=== PATIENT | female | born 1990 | race Caucasian/White ===

== ENCOUNTER 2016-09-12 08:32 | Emergency (ER) | payer SELFPAY ==
[2016-09-12] MEDS ORDERED: PRENTAB55 PO (09:23)
== END 2016-09-12 09:01 | disposition admitted as inpatient to this hospital (09) ==
LOC: M ED 08:32
DX: O99.89 Other specified diseases and conditions complicating pregnancy, childbirth and the puerperium (principal); Z3A.38 38 weeks gestation of pregnancy

== ENCOUNTER 2016-09-12 09:01 | Outpatient (CLI) | payer SELFPAY ==
[~2016-09-12] VITALS: Ht 160 cm; Wt 59.0 kg
[2016-09-12] MEDS ORDERED: PRENTAB55 PO (09:23)
[2016-09-12 10:17] LABS: MEAN CORPUSCULAR HGB CONC 33.2 g/dl (32.0-36.5); MEAN CORPUSCULAR VOLUME 87.6 fl (80.0-96.0); RED CELL DISTRIBUTION WIDTH 12.6 % (11.5-14.5); WHITE BLOOD COUNT 8.2 K/mm3 (4.0-10.0)
[2016-09-12 10:41] LABS: ALT/SGPT 17 U/L (12-78); AST/SGOT 19 U/L (15-37); BILIRUBIN,TOTAL 0.3 MG/DL (0.2-1.0); CREATININE FOR GFR 0.73 MG/DL (0.55-1.02); GLOMERULAR FILTRATION RATE > 60.0 (>60); URIC ACID 3.8 MG/DL (2.6-6.0)
--- NOTE | 2016-09-12 11:35 | REP ---
Obstetric sonography: History: Size less than dates. Findings: Scanning through the gravid uterus demonstrates a viable single intrauterine gestation in a cephalic lie. motion is observed and heart rate is recorded at 138 beats per minute. A posterior grade zero placenta is seen without evidence of previa or abruption. Closed cervical length is measured at 2.9 cm viewed trans vaginally . Amniotic fluid is subjectively normal. No extrauterine abnormality is observed. No anomaly is seen. Cerebellum, posterior fossa, four-chamber heart with outflow tract views, cord insertion and upper and lower extremities are less than optimally seen today due to position. The following additional anatomic structures are identified and felt to be unremarkable: cranium, choroid plexus, cavum, face and profile, lungs, diaphragm, left-sided stomach, three-vessel cord, kidneys and bladder, spine. Biometry chart: BPD 8.1 cm 32 weeks 3 days Head circumference 30.2 cm 33 weeks 4 days Abdominal 28.8 cm 32 weeks 5 days Femur length 7.0 cm 36 weeks 0 days Humeral length 6.2 cm 36 weeks 1 day HC/AC ratio normal 1.05. Cephalic index normal 0.74. Estimated weight 2270 grams, 5 pounds 0 ounces, 39th percentile for 34 weeks 1 day. BERKLEY normal 13.2 cm. Biophysical profile score 8 out of possible 8. S/D ratio umbilical cord artery by Doppler is decreased at 2.00 (3.00 4.00). Impression: Viable single intrauterine gestation at 34 weeks 1 day by today's composite sonographic criteria. LACEY by today's sonography October 23, 2016. Signed by Jaden Peng MD 09/12/2016 02:33 P
== END 2016-09-12 12:50 | disposition home or self-care (01) ==
LOC: M LDO 09:01
PROVIDERS: ATTEND Advanced Practice Midwife
DX: Z34.83 Encounter for supervision of other normal pregnancy, third trimester (principal); Z3A.34 34 weeks gestation of pregnancy